=== PATIENT | female | born 1965 | race Caucasian/White ===

== ENCOUNTER 2018-06-03 11:21 | Emergency (ER) | payer OTHER ==
[~2018-06-03] VITALS: Ht 162.6 cm; Wt 105.2 kg
[~2018-06-03 11:21] MED LIST: CLONAZEPAM0.5 MG; LITHIUM CARBON300 MG
== END 2018-06-03 13:44 | disposition home or self-care (01) ==
LOC: ER 11:21
DX: G89.11 Acute pain due to trauma (principal); R51 Headache